=== PATIENT | male | born 1950 | race Caucasian/White ===

== ENCOUNTER 2018-04-12 16:10 | Outpatient (CLI) | payer MEDICARE, OTHER ==
--- NOTE | 2018-04-12 16:51 | RAD ---
LEFT KNEE: 04/12/18 Four views. INDICATIONS: Left knee pain. There are mild to moderate degenerative changes apparent. The medial and lateral joint spaces are marco antonio ntained. Mild spurring from the femoral condyles, tibial condyles, and patella. Mild spurring from th e tibial spines. There may be a small joint effusion present. IMPRESSION: Mild to moderate degenerative change with suggestion of small joint effusion. POS: [facility]
== END 2018-04-12 16:11 | disposition home or self-care (01) ==
LOC: MADRAD 16:10
PROVIDERS: ATTEND Family Medicine
DX: M17.12 Unilateral primary osteoarthritis, left knee (principal)

== ENCOUNTER 2018-06-24 12:03 | Emergency (ER) | payer MEDICARE ==
[~2018-06-24 12:03] MED LIST: Sodium Chloride Irrig Solution 250 ML BOT ONE
[2018-06-24] MEDS ORDERED: Ketorolac Tromethamine 60 MG/2 ML VIAL ONE (13:01)
--- NOTE | 2018-06-24 13:14 | RAD ---
THREE VIEWS LEFT HAND: INDICATION: Posttraumatic injury, pain. FINDINGS: No fracture, dislocation, or radiopaque foreign body. Scattered osteoarthritis. IMPRESSION: No acute osseous abnormality of the left hand. POS: [facility]
[2018-06-24] MEDS ORDERED: Lidocaine 2% w/Epinephrine 1:200K 20 ML VIAL ONE (14:00)
== END 2018-06-24 15:22 | disposition home or self-care (01) ==
LOC: MADERS 12:03
DX: S61.215A Laceration without foreign body of left ring finger without damage to nail, initial encounter (principal); S61.217A Laceration without foreign body of left little finger without damage to nail, initial encounter; W23.0XXA Caught, crushed, jammed, or pinched between moving objects, initial encounter
CPT/HCPCS: 12004; 96372; J1885

== ENCOUNTER 2024-08-18 18:15 | Emergency (ER) | payer MEDICARE ==
[2024-08-18] MEDS ORDERED: Boostrix 0.5 ML (Tdap) VIAL (>/=7 yrs of age) ONE (19:51)
== END 2024-08-18 20:12 | disposition home or self-care (01) ==
LOC: MADERS 18:15
DX: T70.8XXA Other effects of air pressure and water pressure, initial encounter (principal); S61.221A Laceration with foreign body of left index finger without damage to nail, initial encounter; S51.842A Puncture wound with foreign body of left forearm, initial encounter; S61.442A Puncture wound with foreign body of left hand, initial encounter; Z23 Encounter for immunization
CPT/HCPCS: 12001; 71046; 90471; 90715